=== PATIENT | male | born 1980 | race Caucasian/White ===

== ENCOUNTER 2016-12-03 21:37 | Emergency (ER) | payer MEDICAID, OTHER ==
[~2016-12-03] VITALS: Ht 175.3 cm; Wt 97.7 kg
[2016-12-03 21:47] VITALS: BP 145/86
[2016-12-03 22:06] LABS: GLUCOSE COMMENT 1 Doctor Notified; GLUCOSE,POINT OF CARE 148 MG/DL (70-110)
[2016-12-03 22:37] LABS: INFLUENZA TYPE B POSITIVE FOR TYPE B (NEGATIVE)
== END 2016-12-03 23:38 | disposition home or self-care (01) ==
LOC: EMS 21:38
DX: J11.1 Influenza due to unidentified influenza virus with other respiratory manifestations (principal); E11.9 Type 2 diabetes mellitus without complications
CPT/HCPCS: 82962; 87804; 99284

== ENCOUNTER 2017-10-18 09:16 | Emergency (ER) | payer MEDICAID, OTHER ==
[~2017-10-18] VITALS: Ht 175.3 cm; Wt 104.5 kg
[2017-10-18] MEDS ORDERED: METF500T4 PO (09:35)
[2017-10-18 09:43] LABS: GLUCOSE,POINT OF CARE 196 MG/DL (70-110)
[2017-10-18] MEDS ORDERED: ACETAMINOPHEN 500 MG TABLET PO ONE (10:15)
[2017-10-18] MEDS ORDERED: CYCLOBENZAPRINE HCL 10 MG TABLET PO ONE (10:15)
[2017-10-18] MEDS ORDERED: KETOROLAC TROMETHAMINE 60 MG/2 ML VIAL IM ONE (10:15)
[2017-10-18 12:00] VITALS: BP 129/77
== END 2017-10-18 12:02 | disposition home or self-care (01) ==
LOC: EMS 09:18
DX: M54.5 Low back pain (principal); E11.9 Type 2 diabetes mellitus without complications; F17.210 Nicotine dependence, cigarettes, uncomplicated; Z71.6 Tobacco abuse counseling
CPT/HCPCS: 82962; 96372; 99283; 99406; J1885

== ENCOUNTER 2018-01-17 07:45 | Emergency (ER) | payer OTHER ==
[~2018-01-17] VITALS: Ht 175.3 cm; Wt 104.5 kg
[~2018-01-17 07:45] MED LIST: METF500T6 PO
[2018-01-17 07:57] LABS: GLUCOSE,POINT OF CARE 106 MG/DL (70-110)
[2018-01-17] MEDS ORDERED: IBUPROFEN 600 MG TABLET PO ONE (08:45)
[2018-01-17] MEDS ORDERED: ACETAMINOPHEN 500 MG TABLET PO ONE (08:45)
[2018-01-17] MEDS ORDERED: GuaiFENesin/D-METHORPHAN [SUGAR-FREE] 200-20MG/10 ML SYRUP UDCUP PO ONE (08:45)
[2018-01-17 10:12] VITALS: BP 130/85
== END 2018-01-17 11:43 | disposition home or self-care (01) ==
LOC: EMS 07:46
DX: J20.9 Acute bronchitis, unspecified (principal); J06.9 Acute upper respiratory infection, unspecified; R51 Headache; R03.0 Elevated blood-pressure reading, without diagnosis of hypertension; R11.0 Nausea; E11.9 Type 2 diabetes mellitus without complications; F17.210 Nicotine dependence, cigarettes, uncomplicated
CPT/HCPCS: 99284

== ENCOUNTER 2019-03-28 11:17 | Emergency (ER) | payer OTHER ==
[~2019-03-28] VITALS: Ht 175.3 cm; Wt 100.0 kg
[~2019-03-28 11:17] MED LIST changes: +METF-960 PO; -METF500T6 PO
[2019-03-28 11:30] LABS: GLUCOSE,POINT OF CARE 101 MG/DL (70-110)
[2019-03-28] MEDS ORDERED: KETOROLAC TROMETHAMINE 30 MG/ML VIAL IM ONE (12:30)
[2019-03-28] MEDS ORDERED: LIDOCAINE 5% TRANSDERMAL PATCH TD ONE (12:30)
[2019-03-28 13:14] LABS: APPEARANCE,URINE CLEAR (CLEAR); BILIRUBIN,URINE NEGATIVE (NEGATIVE); GLUCOSE, URINE (UA) NEGATIVE (NEGATIVE); KETONES,URINE TRACE mg/dL (NEGATIVE); LEUKOCYTE ESTERASE ,URINE NEGATIVE (NEGATIVE); NITRATE,URINE NEGATIVE (NEGATIVE); OCCULT BLOOD,URINE NEGATIVE (NEGATIVE); PROTEIN,URINE NEGATIVE (NEGATIVE); UROBILINOGEN,URINE 0.2 mg/dL (<=1.0)
[2019-03-28 13:22] LABS: BACTERIA,URINE Rare /HPF (None Seen); RBC,URINE None Seen /HPF (0-2); SQUAMOUS EPITHELIAL CELL,UR Rare /LPF (None Seen); WBC,URINE 0-2 /HPF (0-5)
[2019-03-28 13:44] VITALS: BP 136/89
== END 2019-03-28 13:56 | disposition home or self-care (01) ==
LOC: EMS 11:18
DX: M54.42 Lumbago with sciatica, left side (principal); N43.3 Hydrocele, unspecified; E11.9 Type 2 diabetes mellitus without complications; F17.210 Nicotine dependence, cigarettes, uncomplicated; Z79.84 Long term (current) use of oral hypoglycemic drugs
CPT/HCPCS: 76870; 81001; 82962; 96372; 99284; J1885

== ENCOUNTER 2021-05-15 16:06 | Emergency (ER) | payer OTHER ==
[~2021-05-15] VITALS: Ht 175.3 cm; Wt 100.0 kg
[2021-05-15 16:15] VITALS: BP 150/89
[2021-05-15 17:18] LABS: GLUCOSE,POINT OF CARE 151 MG/DL (70-110)
[2021-05-15 17:35] LABS: COVID AG,FIA SOURCE NASOPHARYNGEAL
== END 2021-05-15 18:41 | disposition home or self-care (01) ==
LOC: EMS 16:10
DX: J40 Bronchitis, not specified as acute or chronic (principal); E11.9 Type 2 diabetes mellitus without complications; F17.210 Nicotine dependence, cigarettes, uncomplicated; Z20.822 Contact with and (suspected) exposure to COVID-19
CPT/HCPCS: 71045; 82962; 99284

== ENCOUNTER 2022-02-12 22:01 | Emergency (ER) | payer OTHER ==
[~2022-02-12] VITALS: Ht 172.7 cm; Wt 95.5 kg
[2022-02-12 22:07] VITALS: BP 145/94
[2022-02-12] MEDS ORDERED: FLUORESCEIN SODIUM 1 MG STRIP OS ONE (22:45)
[2022-02-12] MEDS ORDERED: PROPARACAINE HCL 0.5% 15 ML OPHTHALMIC SOLUTION OS ONE (22:45)
[2022-02-12] MEDS ORDERED: CLIN-26 PO (23:14)
[2022-02-12] MEDS ORDERED: CLINDAMYCIN HCL 150 MG CAPSULE PO ONE (23:15)
== END 2022-02-13 01:49 | disposition home or self-care (01) ==
LOC: EMS 22:02
DX: H00.014 Hordeolum externum left upper eyelid (principal); L03.213 Periorbital cellulitis; E11.9 Type 2 diabetes mellitus without complications; F17.210 Nicotine dependence, cigarettes, uncomplicated
CPT/HCPCS: 99284; Z7502; Z7610

== ENCOUNTER 2023-06-06 20:21 | Emergency (ER) | payer OTHER ==
[~2023-06-06] VITALS: Ht 175.3 cm; Wt 103.0 kg
[~2023-06-06 20:21] MED LIST changes: +CLIN-26 PO; -METF-960 PO
[2023-06-06 20:31] VITALS: TEMP 98.9
[2023-06-06] MEDS ORDERED: KETOROLAC TROMETHAMINE 60 MG/2 ML VIAL IM ONE (22:45)
[2023-06-06] MEDS ORDERED: IBUPROFEN 600 MG TABLET PO ONE (23:00)
[2023-06-06] MEDS ORDERED: IBUP-1492 PO (23:06)
[2023-06-06 23:28] VITALS: BP 144/99; PULSE 77; RESP 16
== END 2023-06-06 23:30 | disposition home or self-care (01) ==
LOC: EMS 20:22
DX: M25.531 Pain in right wrist (principal); E11.9 Type 2 diabetes mellitus without complications
CPT/HCPCS: 99283; 73130; 96372; J1885